=== PATIENT | male | born 1940 | race Caucasian/White ===

== ENCOUNTER 2018-02-17 08:13 | Day surgery (SDC) | payer MEDICARE ==
[2018-02-10 11:55] VITALS: BMI 23.3
--- NOTE | 2018-02-17 07:47 | P.GSHP ---
History of Present Illness H&P Date: 02/17/18 Chief Complaint: Left inguinal hernia 77-year-old male seen in the office in December. Patient has complaints of a bulge in the left groin. Increasing in size. No history of prior hernia. No bowel habit changes. Past Medical History Past Medical History: Hypertension, Osteoarthritis (OA) History of Any Multi-Drug Resistant Organisms: None Reported Past Surgical History: Orthopedic Surgery Additional Past Surgical History / Comment(s): colonoscopy x3, carpal tunnel left hand Past Anesthesia/Blood Transfusion Reactions: No Reported Reaction Smoking Status: Former smoker - Past Family History Mother Family Medical History: Cancer Brother(s) Family Medical History: Deep Vein Thrombosis (DVT) Medications and Allergies Home Medications Medication Instructions Recorded Confirmed Type Ascorbic Acid [Vitamin C] 500 mg PO DAILY 02/10/18 02/10/18 History Aspirin 81 mg PO DAILY 02/10/18 02/10/18 History Cholecalciferol [Vitamin D3] 1,000 unit PO DAILY 02/10/18 02/10/18 History Doxazosin Mesylate [Cardura] 4 mg PO DAILY 02/10/18 02/10/18 History Garlic 1 each PO DAILY 02/10/18 02/10/18 History Glucosam/Chond/Hyalu/Cf Borate 1 each PO DAILY 02/10/18 02/10/18 History [Move Free Joint Health Tablet] Multivitamin [Men's Multi-Vitamin] 1 each PO DAILY 02/10/18 02/10/18 History [place]-3 Fatty Acids/Fish Oil [Fish 1 each PO DAILY 02/10/18 02/10/18 History Oil 1,000 mg Softgel] Vit A/Vit C/Vit E/Zinc/Copper 1 cap PO DAILY 02/10/18 02/10/18 History [ICAPS SOFTGEL] Allergies Allergy/AdvReac Type Severity Reaction Status Date / Time No Known Allergies Allergy Verified 02/10/18 11:40 Surgical - Exam Physical exam: General: Well-developed, well-nourished HEENT: Normocephalic, sclerae nonicteric Abdomen: Nontender, nondistended, reducible moderate size left inguinal hernia Extremities: No edema Neuro: Alert and oriented Assessment and Plan (1) Left inguinal hernia Narrative/Plan: Patient with recent diagnosis of symptomatic left inguinal hernia. We'll proceed with operative repair with the laparoscopic approach da Katelyn assistance. Risks of bleeding, infection, recurrence, bladder and bowel injury , numbness, nerve injury, conversion to an open procedure were discussed with the patient. The patient understands and wishes to proceed. Status: Acute Code(s): K40.90 - UNIL INGUINAL HERNIA, W/O OBST OR GANGR, NOT SPCF RECUR OMED Code(s): 695711127
[~2018-02-17 08:13] MED LIST: DEXAMETHASONE SOD PHOSPHATE 10 MG/ML 1 ML VIAL IV ONE; HEPARIN SODIUM,PORCINE 5,000 UNIT/ML 1 ML VIAL SQ ONE; LIDOCAINE 1% 20 ML VIAL (10MG/ML) FOR IV START INTRADERMA PRN; MIDAZOLAM 2 MG/2 ML VIAL IV PRN; MORPHINE SULFATE 2 MG/ML SYRINGE IV PRN; ONDANSETRON 4 MG/2 ML VIAL IVP ONE; ceFAZolin IN SWFI 2 GM/20 ML SYRINGE IVP ONE; fentaNYL (PF) 50 MCG/ML 2 ML AMP IV PRN
[2018-02-17] MEDS: LACTATED RINGERS 1,000 ML IV SCH (09:58)
[2018-02-17] MEDS ORDERED: LIDOCAINE 1% 20 ML VIAL (10MG/ML) FOR IV START INTRADERMA ONE (09:59)
[2018-02-17] MEDS ORDERED: fentaNYL (PF) 50 MCG/ML 2 ML AMP ONE (10:01)
[2018-02-17] MEDS ORDERED: GLYCOPYRROLATE 0.2 MG/ML 2 ML VIAL ONE (10:01)
[2018-02-17] MEDS ORDERED: SUCCINYLCHOLINE CHLORIDE 100 MG/5 ML SYR IV ONE (10:01)
[2018-02-17] MEDS ORDERED: MIDAZOLAM 2 MG/2 ML VIAL ONE (10:01)
[2018-02-17] MEDS ORDERED: ROCURONIUM BROMIDE 10 MG/ML 10 ML VIAL IV ONE (10:01)
[2018-02-17] MEDS ORDERED: PROPOFOL 10 MG/ML 20 ML VIAL IV ONE (10:01)
[2018-02-17] MEDS ORDERED: HYDROmorphone (PF) 1 MG/ML ONE (10:01)
[2018-02-17] MEDS ORDERED: NEOSTIGMINE 1 MG/ML 10 ML VIAL ONE (10:01)
[2018-02-17] MEDS ORDERED: BUPIVACAINE (PF) 0.5% 30 ML VIAL SQ ONE (10:33)
[2018-02-17] MEDS ORDERED: ROPIVACAINE 5 MG/ML 30 ML VIAL MISCELLANE ONE (11:46)
[2018-02-17] MEDS ORDERED: HYDROcodone/APAP 5-325MG 1 EACH TAB PO PRN (11:59)
[2018-02-17] MEDS ORDERED: NALOXONE 0.4 MG/ML 1 ML VIAL IV PRN (11:59)
--- NOTE | 2018-02-17 12:02 | P.OP ---
Date of Procedure: 02/17/18 Procedure(s) Performed: PREOPERATIVE DIAGNOSIS: Left inguinal hernia POSTOPERATIVE DIAGNOSIS: Same PROCEDURE: Laparoscopic repair left inguinal hernia with the da Katelyn robot assistance with mesh SURGEON: Nick EBL: Minimal ANESTHESIA: General COMPLICATIONS: None OPERATIVE PROCEDURE: Patient was placed in the operating table in the supine position. The patient was placed under general anesthesia. The patient was then placed in lithotomy. The abdomen was prepped and draped in usual sterile fashion. A small curvilinear supraumbilical incision was made. The fascia was retracted anteriorly with Harsha forceps. The Veress needle was inserted. The saline drop test was normal. Insufflation took place to 15 mmHg. A 5 mm trocar was then inserted. 2 additional 8 mm trochars were placed in the right upper quadrant and left upper quadrant under visualization. The initial 5 mm trocar was then switched to a 12 mm trocar. The patient's bladder was quite full and a Martinez catheter was placed under aseptic conditions. The robotic arms were then brought in and docked into place. The fenestrated bipolar was used in the left arm and the laparoscopic ara was utilized in the right arm. A 30 12 mm scope was used in the up position. The peritoneal cavity was inspected. The patient had a large indirect left inguinal hernia no visible right inguinal hernia was seen. The peritoneum was incised in a horizontal fashion cephalad to the internal inguinal ring. Following that careful dissection of the preperitoneal space took place. This took place using both electrocautery, sharp dissection but primarily blunt dissection. Visualization of the pubic tubercle and Song's ligament took place medially. Full dissection took place laterally as well. The hernia sac was fully dissected. Once we had adequate space the 15 x 10 progrip mesh was advanced into the preperitoneal space and flattened out appropriately to cover all potential hernia sites. No sutures were used. The peritoneal defect was then closed using a locking 2-0 VLok suture. A small defect in the peritoneum was closed using a [id number] 3-0 Vicryl stitch. The pneumoperitoneum was then evacuated. The fascia at the 12 mm site was closed using the Jeremy Solis technique and an 0 Vicryl stitch. The skin of all 3 sites was closed using a 4- 0 Monocryl stitch. Steri-Strips and sterile dressings were applied. DISPOSITION: Stable to recovery room
[2018-02-17 12:20] VITALS: TEMP 97.6
[2018-02-17] MEDS ORDERED: HYDROmorphone 1 MG/ML 1 ML SYRINGE IVP ONE (12:35)
[2018-02-17 13:45] VITALS: RESP 16
[2018-02-17] MEDS ORDERED: HYDROcodone/APAP 5-325MG 1 EACH TAB PO ONE (14:25)
[2018-02-17] MEDS ORDERED: hydrALAZINE HCL 20 MG/ML 1 ML VIAL IV ONE (14:25)
[2018-02-17] MEDS ORDERED: TAMSULOSIN 0.4 MG CAP.ER.24H PO STA (20:07)
[2018-02-17 20:45] VITALS: BP 158/65; PULSE 67
== END 2018-02-17 20:45 | disposition home or self-care (01) ==
LOC: OR 08:13
PROVIDERS: ATTEND Surgery
DX: K40.90 Unilateral inguinal hernia, without obstruction or gangrene, not specified as recurrent (principal); E78.00 Pure hypercholesterolemia, unspecified; I10 Essential (primary) hypertension; N40.0 Benign prostatic hyperplasia without lower urinary tract symptoms; I71.4 Abdominal aortic aneurysm, without rupture; Z87.891 Personal history of nicotine dependence; K64.9 Unspecified hemorrhoids; M19.90 Unspecified osteoarthritis, unspecified site; Z79.82 Long term (current) use of aspirin; Z79.899 Other long term (current) drug therapy
CPT/HCPCS: 49650; J0360; J1644; J1100; J2405; J1170; J2795; J0690